=== PATIENT | female | born 1960 | race Caucasian/White ===

== ENCOUNTER 2019-11-06 10:00 | Outpatient (RCR) | payer OTHER, SELFPAY ==
--- NOTE | 2019-08-29 14:40 | PTOPEVAL ---
PHYSICAL THERAPY EVALUATION AND PLAN OF CARE Thank you for referring Letty Vickers to [facility]. Letty is scheduled 2-3x/week for 4-8 weeks. Please review, sign, date and return this plan of care DEMOND. I agree with and certify that the following plan of care is medically necessary. Referring Physician Date Admitting Provider: Attending Provider: Robinson Bolaños MD Evaluation Problem Diagnosis right TKA Onset 08/25/2019 Subjective Information Letty is here today 4 days s Query Text:As Reported By Patient/ /p right TKA. She has Family seqential hose, ice machine, and an immobilizer she uses at night. She states that she is in quite a bit of pain and the knee does not want to bend. Self Report Pain Assessment Right Knee Reported Pain Level 6 Pain Description Aching Lowest Pain Intensity 5 Greatest Pain Intensity 9 Pain Aggravating Factors Walking,Weight Bearing/ Standing Pain Relief Interventions Used By Ice,Inactivity/Rest,Medication Patient Knee Range of Motion Right Knee Flexion Range of Motion - Active 42 Knee Extension Range of Motion - Active -14 Query Text: Knee Range of Motion Comments gentle PROM to encourage knee flexion - patient is resistant to performing flexion; Knee Strength Right Knee Flexion Strength 3+ Fair + Knee Extension Strength 0 Zero Palpation signfiicant edema noted to right LE Edema Assessment Location Right Leg Type Pitting Edema Degree 2+ (2-4 mm) Bed Mobility Overall Bed Mobility Ability Minimum Assistance X 1 Bed Mobility Comments min A for RLE Gait Pattern Step-to Gait Other Gait Observations extremely stiff right knee with hip hike and circumduction compensation Stair Climbing Assessment Stair Climbing Assistive Devices Walker, Wheeled Number of Steps Climbed (Steps) 3 Number of Repetitions (Repetitions) 1 Technique Single Steps Stair Climbing Direction Both Up and Down Stair Climbing Ability Standby Assistance Stair Climbing Comments down backward; adjusted walker to have uneven legs to match with steps. PT Clinical Summary Letty is a 59 yo female presenting to outpatient
--- NOTE | 2019-09-19 11:54 | PTOPEVAL ---
PHYSICAL THERAPY PLAN OF CARE UPDATE AND PROGRESS REPORT Thank you for referring Letty Vickers to [facility]. Letty will continue PT 2-3x/week for 3-4 weeks. Please review, sign, date and return this plan of care DEMOND. I agree with and certify that the following plan of care is medically necessary. Referring Physician Date Progress Evaluation Information Problem Diagnosis right TKA Onset 08/25/2019 Subjective Information Letty is here today 3 weeks Query Text:As Reported By Patient/ s/p right TKA. She reports Family she is doing well. Continues to have limited knee flexion. Would like to go back to work sooner than later. Self Report Pain Assessment Right Knee(s) Reported Pain Level 2 Pain Description Aching Pain Frequency Continuous Pain Aggravating Factors Bending,Exercise/Activity, Walking Pain Behaviors Guarding,Limping,Rigid Interventions Used By Clinicians Exercise,Manual Therapy Techniques Pain Score Pain Score 2: Self Report Additional Pain Score Comments feels good during the day, at night is the worst. Knee Range of Motion Right Knee Flexion Range of Motion - Active 60 Knee Flexion Range of Motion - Passive 65 Knee Extension Range of Motion - Active -7 Query Text: Knee Range of Motion Comments gentle PROM to encourage knee flexion - patient is resistant to performing flexion; Knee Strength Right Knee Flexion Strength 4- Good - Knee Extension Strength 3- Fair - Knee Strength Comments continues to have poor reciprocal inhibition, but is improving (quad inhibition to activation hamstring) Palpation edema significantly improved, there is a pocket of fluid at medial joint line of knee; incision is moving very well with minimal adhesions Gait Pattern Assessment Other Gait Observations significantly improved knee flexion during stance phase, no circmduction present on this date PT Clinical Summary Letty is a 59 yo female presenting to outpatient physical therapy 3weeks s/p right TKA. She demonstrates today progr
--- NOTE | 2019-09-30 08:04 | PCPTNOTE ---
Patient called & cancelled scheduled appointment this date. She left a message. No reason provided.
--- NOTE | 2019-10-08 13:20 | PTOPEVAL ---
PHYSICAL THERAPY PLAN OF CARE UPDATE AND PROGRESS REPORT Thank you for referring Letty Vickers to [facility].? The patient is scheduled to be seen for therapy? 2x/week for 4 weeks of aquatic therapy. Please review, sign, date and return this plan of care DEMOND. I agree with and certify that the following plan of care is medically necessary. Referring Physician Date Progress Diagnosis right TKA Onset 08/25/2019 Subjective Information Letty is here today 6 weeks Query Text:As Reported By Patient/ s/p right TKA. no significant Family c/o pain. Knee is stiff today because she was really active yesterday. Knee continues to be limited in flexion but she is working really hard to increase ROM. Self Report Pain Assessment Right Knee(s) Reported Pain Level 1 Pain Description Aching Pain Frequency Continuous Pain Aggravating Factors Bending,Exercise/Activity, Walking Pain Behaviors Guarding,Limping,Rigid Interventions Used By Clinicians Exercise Knee Range of Motion Right Knee Flexion Range of Motion 85 Knee Extension Range of Motion 0 Query Text: Knee Strength Right Knee Flexion Strength 5 Normal Knee Extension Strength 4- Good - FINNEY Balance Evaluation Total Score 54/56 Timed Up and Go Test (TUG) (Seconds) 13seconds 5 Time Sit to Stand Time in Seconds 20.66seconds Gait Pattern No Deviations/Normal Other Gait Observations decreased knee flexion on right PT Clinical Summary Letty is a 59 yo female presenting to outpatient physical therapy 6weeks s/p right TKA. She demonstrates today progress toward meeting her functional goals for strength and ROM. She does continue to have significant deficit to right knee flexion, although progressing steadily . I recommend continuing PT 2x /week for 4 weeks in aquatic environment. PT Services Indicated Yes Rehabilitation Potential Good Patient/Caregiver's Personal Goals for rehabilitate well Rehabilitation Potential Barriers to Goal Achievements None Support Requirements For Optimal Assistive Devices,Family [place]
--- NOTE | 2019-10-30 10:22 | PCPTNOTE ---
Patient called & cancelled scheduled appointment this date due to being called into work this morning.
--- NOTE | 2019-11-06 10:40 | PTOPEVAL ---
PHYSICAL THERAPY DISCHARGE NOTE Thank you for referring Letty Vickers to [facility].? Please review, sign, date and return this plan of care DEMOND. I agree with and certify that the following plan of care is medically necessary. Referring Physician Date Assessment Status Discharge Diagnosis right TKA Onset 08/25/2019 Subjective Information has spent the last 4 weeks Query Text:As Reported By Patient/ participating in aquatic Family physical therapy. She really enjoys the warm environment and felt a lot of comfort when performing new activities. Really felt she benefited greatly from aquatics. Self Report Self Report Pain Level 0 Pain Score Pain Score 0: Self Report Additional Pain Score Comments walked dog yesterday with some tugging causing increase soreness Lower Extremity Range of Motion Knee Range of Motion Right Knee Flexion Range of Motion - Active 96 Knee Extension Range of Motion - Active 0 Query Text: Lower Extremity Muscle Strength Testing Knee Strength Right Knee Flexion Strength 5 Normal Knee Extension Strength 5 Normal Gait Assessment Gait Pattern Assessment Gait Pattern No Deviations/Normal Stair Climbing Assessment Stair Climbing Assessment Stair Climbing Assistive Devices None Number of Steps Climbed (Steps) 4 Number of Repetitions (Repetitions) 2 Technique Alternating Steps Stair Climbing Direction Both Up and Down Stair Climbing Ability Independent PT Clinical Summary Letty is a 59 yo female presenting to outpatient physical therapy 10weeks s/p right TKA. She demonstrates today normal function in gait, stair climbing, and reports that work is going well. She has no pain even after a full day of work. Cold weather causes some increased stiffness. Her ROM is 0-96deg flexion and she states she is very comfortable with her current functional ability. I educated her extensively to continue working on knee flexion daily so as to gain as much knee flexion as possible.
== END 2019-11-06 12:52 | disposition home or self-care (01) ==
LOC: ANHPT 10:00
DX: Z47.1 Aftercare following joint replacement surgery (principal); Z96.651 Presence of right artificial knee joint
CPT/HCPCS: 97110; 97112; 97113; 97140; 97161

== ENCOUNTER → 2021-08-04 11:21 | Outpatient (CLI) | payer BC, SELFPAY ==
--- NOTE | ~2021-08-04 | US_ITS ---
EXAMINATION: US venous doppler [facility] DATE: 08/04/2021 11:54 INDICATION: Lower limb swelling TECHNIQUE: Grayscale ultrasound images without and with compression and Doppler ultrasound images of the bilateral lower extremity veins were obtained. COMPARISON: None. FINDINGS: The visualized portions of right common femoral vein, profunda (deep) femoral vein, femoral vein, pop liteal vein, posterior tibial veins, peroneal veins, gastrocnemius vein and greater saphenous vein ou tflow are patent. The visualized portions of left common femoral vein, profunda femoral vein, femoral vein, popliteal v ein, posterior tibial veins, peroneal veins, gastrocnemius vein and greater saphenous vein outflow ar e patent. IMPRESSION: 1. No deep venous thrombosis in either lower limb. Reviewed, dictated and finalized at location B.
== END ==
PROVIDERS: PCP Physician Assistant; Visit Provider Physician Assistant
DX: R60.9 Edema, unspecified (principal)
CPT/HCPCS: 93970

== ENCOUNTER 2023-05-17 15:15 | Outpatient (RCR) | payer MEDICARE, SELFPAY ==
--- NOTE | 2023-03-30 13:17 | PCPTNOTE ---
pt called and canceled/rescheduled today's eval due to snow and bad weather.
--- NOTE | 2023-04-02 17:52 | PTOPEVAL1 ---
Assessment and note entered by Diego Flannery, PT Evaluation Information Assessment Status Evaluation Diagnosis Left Total Knee Replacement Onset 03/26/23 Subjective Information Reports that overall she is doing well. This is her second knee replacement and no concerns with this procedure compared to last time. Denies numbness or concerns ambulating around home with walker. Independent prior to surgery. 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 Reported Pain Level Pain Score 4: Self Report Assessment PT Clinical Summary Patient presents with edema, loss of ROM, weakness , and altered gait. Signs and symptoms are typical of post operative total knee and suitable for formal therapy to restore these deficits. Early therapy will focus on edema reduction and druze of knee extension with transition to gait training and knee flexion improvement. Plan of Care Interventions Electrical Stimulation,Gait Training,Hot Pack/Cold Pack,Manual Therapy,Neuro Re-education, Therapeutic Activities,Therapeutic Exercise PT Services Indicated Yes Treatment Frequency and 2-3x/week for 10 visits Duration These treatments will address the objective and functional deficits as defined above. The patient will be advanced safely and appropriately in order for the patient to progress towards his/her prior level of function. Additional exercises will be introduced and as well as a comprehensive home exercise program upon discharge, if needed, ?to ensure carryover of functional gains achieved in the clinic. This treatment plan has been reviewed and agreement upon by the patient.
--- NOTE | 2023-04-02 17:52 | OPREHPOC ---
Outpatient Therapy Plan of Care This is a Multidisciplinary Plan of Care that may contain components documented by all disciplines (PT, OT, and ST.) PT Problem 1 PT Problem #1 Knowledge Deficit PT Goal 1 Goal [place] with HEP Target Visit 4 PT Problem 2 PT Problem #2 Pain PT Goal 1 Goal Report no pain with home stair navigation Target Visit 4 PT Problem 3 PT Problem #3 Impaired Range of Motion PT Goal 1 Goal Patient will achieve terminal L knee extension for even stride length bilaterally Target Visit 10 PT Goal 2 Goal Achieve 120 degrees on left knee flexion to improve joint mobility and foot clearance Target Visit 10 PT Problem 4 PT Problem #4 Impaired Gait PT Goal 1 Goal Ambulate independent of AD Target Visit 6 PT Goal 2 Goal Ambulate with even stride length bilaterally to normalize gait pattern Target Visit 10
--- NOTE | 2023-05-03 14:12 | PTOPEVAL1 ---
Assessment and note entered by Diego Flannery, PT Evaluation Information Assessment Status Progress Diagnosis Left Total Knee Replacement Onset 03/26/23 Subjective Information Reports that overall she feels she is doing really well. Had follow up with MD and they were happy with progress. Feels she is still a little off in her balance and stride when she is walking lacking terminal extension of her knee. Would like to continue therapy to address these deficits. No pain at rest. Reported Pain Level Pain Score 0: Self Report Assessment PT Clinical Summary Patient has made excellent progress at this point with knee ROM and gait. Overall she is still showing some minor ROM deficits and I feel we can continue to improve these through aggressive ROM and gait training. Will continue to benefit from skilled therapy to address these deficits and restore normal gait pattern and ADL performance. Plan of Care Interventions Electrical Stimulation,Gait Training,Hot Pack/Cold Pack,Manual Therapy,Neuro Re-education, Therapeutic Activities,Therapeutic Exercise PT Services Indicated Yes Treatment Frequency and 2/week for 8 visits Duration These treatments will address the objective and functional deficits as defined above. The patient will be advanced safely and appropriately in order for the patient to progress towards his/her prior level of function. Additional exercises will be introduced and as well as a comprehensive home exercise program upon discharge, if needed, ?to ensure carryover of functional gains achieved in the clinic. This treatment plan has been reviewed and agreement upon by the patient.
--- NOTE | 2023-05-03 14:13 | OPREHPOC ---
Outpatient Therapy Plan of Care This is a Multidisciplinary Plan of Care that may contain components documented by all disciplines (PT, OT, and ST.) PT Problem 1 PT Problem #1 Knowledge Deficit PT Goal 1 Goal [place] with HEP Target Visit 4 Progress Met PT Problem 2 PT Problem #2 Pain PT Goal 1 Goal Report no pain with home stair navigation Target Visit 4 Progress Met PT Problem 3 PT Problem #3 Impaired Range of Motion PT Goal 1 Goal Patient will achieve terminal L knee extension for even stride length bilaterally Target Visit 18 Progress Partially Met Comment Improved but lacking PT Goal 2 Goal Achieve 120 degrees on left knee flexion to improve joint mobility and foot clearance Target Visit 10 Progress Met Comment Continued room for improvement PT Problem 4 PT Problem #4 Impaired Gait PT Goal 1 Goal Ambulate independent of AD Target Visit 6 Progress Met PT Goal 2 Goal Ambulate with even stride length bilaterally to normalize gait pattern Target Visit 10 Progress Partially Met Comment Progressing with progress of knee extension
--- NOTE | 2023-05-24 17:01 | PTOPDC ---
Assessment and note entered by Diego Flannery, PT Evaluation Information Assessment Status Discharge Diagnosis Left Total Knee Replacement Onset 03/26/23 Subjective Information Patient reports to therapist that she desires to be discharged at this time. She feel she has hit most of her personal goals and would like to continue on HEP to achieve full terminal extension . No concerns at this time. Assessment PT Clinical Summary Patient has hit all personal goals for therapy and is suitable for discharge to HEP at this time with emphasis on compliance. Lacking minor terminal knee extension which she has shown dedication to working on at home. Plan of Care PT Services Indicated D/C to HEP
== END 2023-05-25 10:13 | disposition home or self-care (01) ==
LOC: ANHPT 15:15
PROVIDERS: PCP Physician Assistant
DX: Z47.1 Aftercare following joint replacement surgery (principal); Z96.652 Presence of left artificial knee joint
CPT/HCPCS: 97016; 97110; 97112; 97116; 97140; 97161; 97530; 99199